=== PATIENT | female | born 1965 | race Caucasian/White ===

== ENCOUNTER 2020-09-03 14:48 | Emergency (ER) | payer MEDICARE, OTHER ==
[~2020-09-03] VITALS: Ht 167.6 cm; Wt 70.3 kg
[2020-09-03] MEDS ORDERED: LORAZEPAM 1 MG TABLET ONE (15:26)
[2020-09-03] MEDS ORDERED: LORAZEPAM 1 MG TABLET PO ONE (15:30)
--- NOTE | 2020-09-03 15:30 | NUR ---
Medical clearance for Carmen Hernandez. Suicidal ideation with no plan. Patient a/ox4, breathing even and unlabored, no sob noted. Needs attended. Kept comfortable. Security called for wanding.
--- NOTE | 2020-09-03 15:31 | NUR ---
Patient given a urine cap for sample.
[2020-09-03 15:39] LABS: BASOPHILS % (AUTO) 0.7 % (0.0-2.0); EOSINOPHILS % (AUTO) 3.3 % (0.0-6.0); HEMATOCRIT 44 % (33-45); HEMOGLOBIN 14.7 g/dL (11.5-14.8); LYMPHOCYTES # (AUTO) 1.6 /CMM (0.8-4.8); LYMPHOCYTES % (AUTO) 24.3 % (20.0-44.0); MEAN CORPUSCULAR HGB CONC 34 g/dl (31.0-36.0); MEAN CORPUSCULAR VOLUME 92 fL (82-100); MONOCYTES # (AUTO) 0.4 /CMM (0.1-1.30); MONOCYTES % (AUTO) 5.8 % (2.0-12.0); NEUTROPHILS # (AUTO) 4.5 /CMM (1.8-8.9); NEUTROPHILS % (AUTO) 65.9 % (43.0-81.0); PLATELET COUNT (AUTO) 304 /CMM (150-450); WHITE BLOOD COUNT (AUTO) 6.8 K/uL (4.3-11.0)
[2020-09-03 15:53] LABS: CALCIUM, SERUM 9.9 mg/dL (8.5-10.1); CARBON DIOXIDE 27 mmol/L (21-32); CHLORIDE 104 mmol/L (98-107); GLUCOSE 94 mg/dL (74-106); POTASSIUM 3.8 mmol/L (3.5-5.1); SODIUM SERUM 139 mmol/L (136-145); UREA NITROGEN, BLOOD 12 mg/dL (7-18)
[2020-09-03 15:59] LABS: ALANINE AMINOTRANSFERASE 12 U/L (12-78); ALBUMIN 3.7 g/dL (3.4-5.0); ALCOHOL, BLOOD < 3 mg/dL (0-0); ALKALINE PHOSPHATASE 70 U/L (46-116); ASPARTATE AMINOTRANSFERASE 12 U/L (15-37); BILIRUBIN,DIRECT 0.1 mg/dL (0.0-0.2); BILIRUBIN,TOTAL 0.8 mg/dL (0.2-1.0); TOTAL PROTEIN, SERUM 6.8 g/dL (6.4-8.2)
[2020-09-03 16:00] LABS: ACETAMINOPHEN < 0 ug/ml (10-30)
--- NOTE | 2020-09-03 16:01 | NUR ---
covid swab sent.
[2020-09-03 16:06] LABS: BILIRUBIN,URINE Negative (NEGATIVE); COLOR,URINE YELLOW (YELLOW); LEUKOCYTE ESTERASE ,URINE Trace (NEGATIVE); NITRITE, URINE Negative (NEGATIVE); PROTEIN,URINE Negative (NEGATIVE); UGLUCOSE Negative (NEGATIVE); UROBILINOGEN,URINE 0.2 EU/dL (0.2)
[2020-09-03 16:21] LABS: BACTERIA,URINE Few /HPF (None Seen); RBC,URINE 0-2 /HPF (0-2); SQUAMOUS EPITHELIAL CELL,UR Few /HPF (None Seen)
--- NOTE | 2020-09-03 18:07 | NUR ---
PATIENT RESTING NO DISTRESS NOTED.
--- NOTE | 2020-09-03 19:06 | NUR ---
CLINICAL AND FACESHEET FAXED TO [facility] FOR VOLUNTARY ADMISSION.
--- NOTE | 2020-09-03 19:52 | NUR ---
SPOKE TO PT REGARDING PLAN OF CARE. PT AAOX4. AWARE OF PLAN OF CARE. REMAINS ON MONITOR AND PULSE OX.
--- NOTE | 2020-09-03 20:27 | NUR ---
TRANSFER INFORMATION: PT ACCEPTED AT [facility] ACCEPTING MD SCHILLING PT WILL GO TO UNIT 2 PHONE NUMBER FOR REPORT
--- NOTE | 2020-09-03 20:58 | NUR ---
[facility] called for transport. reservation #[phone]
--- NOTE | 2020-09-03 21:34 | NUR ---
rec'd a call from call the car. [facility] ETA: [id number]
--- NOTE | 2020-09-03 21:41 | NUR ---
report given to Mary at [facility]
[2020-09-03 23:01] VITALS: BP 119/67
--- NOTE | 2020-09-03 23:01 | NUR ---
[facility] AT BEDSIDE REPORT GIVEN TO EMT.
== END 2020-09-03 23:02 ==
LOC: ER 14:48
DX: F31.9 Bipolar disorder, unspecified (principal); R45.851 Suicidal ideations; Z79.899 Other long term (current) drug therapy; Z20.822 Contact with and (suspected) exposure to COVID-19
CPT/HCPCS: 36415; 80048-TC; 80076-TC; 81001; 84703-TC; 85025-TC; C9803; G0480